=== PATIENT | male | born 1955 | race Caucasian/White ===

== ENCOUNTER 2022-06-15 19:37 | Emergency (ER) | payer BC, OTHER ==
[~2022-06-15] VITALS: Ht 175.3 cm; Wt 78.0 kg
[2022-06-15 19:54] VITALS: BP 116/77
== END 2022-06-15 23:37 | disposition left against medical advice (07) ==
LOC: ER 19:37
DX: M25.571 Pain in right ankle and joints of right foot (principal); Z53.21 Procedure and treatment not carried out due to patient leaving prior to being seen by health care provider
CPT/HCPCS: 99281